=== PATIENT | male | born 1985 | race Caucasian/White ===

== ENCOUNTER 2018-07-27 19:13 | Emergency (ER) | payer OTHER ==
[~2018-07-27] VITALS: Ht 167.6 cm; Wt 92.6 kg
[~2018-07-27 19:13] MED LIST: HYDR-3498 PO; IBUP-1542 PO
[2018-07-27 19:40] VITALS: Ht 167.6 cm; Wt 92.6 kg
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
[2018-07-27] MEDS ORDERED: morphine 4 MG/ML VIAL IM STA (22:09)
[2018-07-27] MEDS ORDERED: ONDANSETRON (ODT) 4 MG TAB ODT STA (22:09)
[2018-07-27] MEDS ORDERED: KETOROLAC 30 MG INJ IM STA (22:09)
[2018-07-28] MEDS ORDERED: META-121 PO (00:27)
[2018-07-28] MEDS ORDERED: IBUP800T48 PO (00:27)
[2018-07-28 00:42] VITALS: BP 140/91; PULSE 86; RESP 20
== END 2018-07-28 00:44 | disposition home or self-care (01) ==
LOC: FTE 19:13
DX: S06.0X0A Concussion without loss of consciousness, initial encounter (principal); S10.93XA Contusion of unspecified part of neck, initial encounter; S30.0XXA Contusion of lower back and pelvis, initial encounter; R07.9 Chest pain, unspecified; V49.50XA Passenger injured in collision with unspecified motor vehicles in traffic accident, initial encounter
CPT/HCPCS: 70450; 71046; 72125; 72131; 96372; J1885; J2270; Z7502; Z7610